=== PATIENT | female | born 1985 | race Two or more races ===

== ENCOUNTER 2017-07-20 12:49 | Emergency (ER) | payer OTHER ==
[~2017-07-20] VITALS: Ht 144.8 cm; Wt 49.0 kg
[2017-07-20 12:51] VITALS: BP 105/65
[2017-07-20 13:38] LABS: HCG UR SG 1.025 (1.003-1.030)
[2017-07-20 13:43] LABS: MICROSCOPIC INDICATED
[2017-07-20 13:54] LABS: CULTURE INDICATED? YES
[2017-07-20] MEDS ORDERED: SODIUM CHLORIDE FLUSH 10ML SYR IVF ONE (14:00)
[2017-07-20] MEDS ORDERED: SODIUM CHLORIDE 0.9% 1,000ML IVBOLUS ONE (14:00)
[2017-07-20 14:25] LABS: BASOPHILS # (AUTO) 0.05 x10^3/uL (0-0.1); BASOPHILS % (AUTO) 1 % (0-1); EOSINOPHILS # (AUTO) 0.16 x10^3/uL (0-0.4); EOSINOPHILS % (AUTO) 2 % (1-7); LYMPHOCYTES # (AUTO) 1.56 x10^3/uL (1-3.4); LYMPHOCYTES % (AUTO) 17 % (22-44); MD NO; MEAN CORPUSCULAR HGB CONC 34.1 g/dL (32.4-35.8); MEAN CORPUSCULAR VOLUME 88.1 fL (80-100); MEAN PLATELET VOLUME 8.9 fL (7.4-10.4); MONOCYTES # (AUTO) 0.44 x10^3/uL (0.2-0.8); MONOCYTES % (AUTO) 5 % (2-9); NEUTROPHILS # (AUTO) 7.16 x10^3/uL (1.8-6.8); NEUTROPHILS % (AUTO) 77 % (42-75); PLATELET COUNT 238 x10^3/uL (130-400); RED BLOOD COUNT 4.47 x10^6/uL (3.82-5.3); RED CELL DISTRIBUTION WIDTH 12.9 % (9.6-15.2)
[2017-07-20] MEDS ORDERED: PLEASE ENTER ALLERGIES MC SCH (14:30)
[2017-07-20 14:31] LABS: ALANINE AMINOTRANSFERASE 20 U/L (12-78); ALBUMIN 3.4 g/dL (3.4-5.0); ANION GAP 6 mmol/L (5-15); CALCIUM 8.7 mg/dL (8.5-10.1); CHLORIDE 108 mmol/L (98-107)
[2017-07-20 14:49] LABS: ALKALINE PHOSPHATASE 55 U/L (45-117); BILIRUBIN,TOTAL 0.3 mg/dL (0.2-1.0); CREATININE 0.63 mg/dL (0.55-1.02); TOTAL PROTEIN 7.6 g/dL (6.4-8.2)
== END 2017-07-20 15:24 | disposition home or self-care (01) ==
LOC: ED 15:18
DX: O26.891 Other specified pregnancy related conditions, first trimester (principal); R10.2 Pelvic and perineal pain; Z3A.01 Less than 8 weeks gestation of pregnancy
CPT/HCPCS: 36415; 76801; 80053; 81001; 81025; 84702; 85025; 87086; 99285

== ENCOUNTER 2017-08-03 15:02 | Emergency (ER) | payer SELFPAY ==
[~2017-08-03] VITALS: Ht 144.8 cm; Wt 50.0 kg
[2017-08-03 15:22] VITALS: BP 120/77
[2017-08-03 16:47] LABS: BASOPHILS # (AUTO) 0.05 x10^3/uL (0-0.1); BASOPHILS % (AUTO) 0 % (0-1); EOSINOPHILS # (AUTO) 0.22 x10^3/uL (0-0.4); EOSINOPHILS % (AUTO) 2 % (1-7); LYMPHOCYTES # (AUTO) 1.83 x10^3/uL (1-3.4); LYMPHOCYTES % (AUTO) 17 % (22-44); MD NO; MEAN CORPUSCULAR HEMOGLOBIN 30.4 pg (27.0-34.8); MEAN CORPUSCULAR HGB CONC 34.1 g/dL (32.4-35.8); MEAN CORPUSCULAR VOLUME 89.1 fL (80-100); MEAN PLATELET VOLUME 8.9 fL (7.4-10.4); MONOCYTES # (AUTO) 0.51 x10^3/uL (0.2-0.8); MONOCYTES % (AUTO) 5 % (2-9); NEUTROPHILS # (AUTO) 8.07 x10^3/uL (1.8-6.8); NEUTROPHILS % (AUTO) 76 % (42-75); PLATELET COUNT 278 x10^3/uL (130-400)
[2017-08-03 16:56] LABS: ALBUMIN 3.6 g/dL (3.4-5.0); ANION GAP 7 mmol/L (5-15); CALCIUM 8.2 mg/dL (8.5-10.1); CHLORIDE 106 mmol/L (98-107)
[2017-08-03 17:15] LABS: CREATININE 0.61 mg/dL (0.55-1.02)
[2017-08-03 18:06] LABS: MICROSCOPIC INDICATED
[2017-08-03 18:35] LABS: CULTURE INDICATED? NO
== END 2017-08-03 20:16 | disposition home or self-care (01) ==
LOC: ED 20:15
DX: O20.0 Threatened abortion (principal)
CPT/HCPCS: 36415; 76801; 80048; 81001; 82040; 84702; 85025; 86901; 99285